=== PATIENT | female | born 1990 | race Caucasian/White ===

== ENCOUNTER → 2017-02-24 | Outpatient (REF) ==
[~2017-02-24] MED LIST: ABILIFY2 MG PO; CEPHALEXIN500 M1 PO; CLEOCIN HCL300 MG PO; DESYREL 100MG100 MG PO; FLONASE NASAL S16 GM NS; METRONIDAZOLE500 MG PO; MOTRIN 800800 MG/TAB PO; NO HOME MEDICATIONS; NORCO 325 MG-51 TAB PO; PERCOCET 325 MG1 TA2 PO; PRENATAL; ZOFRAN ODT4 MG PO; ZOLOFT 100MG100 MG PO
== END ==
LOC: ZLAB.WCH 19:47
DX: Z01.89 Encounter for other specified special examinations (principal)

== ENCOUNTER 2017-11-09 06:42 | Outpatient (CLI) | payer MEDICAID ==
[~2017-11-09] VITALS: Ht 157.5 cm; Wt 100.9 kg
[2017-11-09 07:04] VITALS: BP 128/92; PULSE 83; TEMP 98.3
[2017-11-09] MEDS ORDERED: TYLENOL PM EXTR1 TA1 PO (07:12)
[2017-11-09] MEDS ORDERED: PRENATAL MVI PO (07:12)
[2017-11-09 07:30] VITALS: BP 114/78; PULSE 70
== END 2017-11-09 08:00 | disposition home or self-care (01) ==
LOC: LDRO 06:42
DX: O36.8130 Decreased fetal movements, third trimester, not applicable or unspecified (principal); Z3A.29 29 weeks gestation of pregnancy

== ENCOUNTER → 2017-12-24 | Emergency (ER) | payer MEDICAID ==
[~2017-12-24] VITALS: Ht 157.5 cm; Wt 101.4 kg
[~2017-12-24] MED LIST changes: +PRENATAL MVI PO; +TYLENOL PM EXTR1 TA1 PO
[2017-12-24 13:08] VITALS: BP 120/76; PULSE 121; TEMP 98.1
== END ==
LOC: COL.ER 13:07
DX: O9A.213 Injury, poisoning and certain other consequences of external causes complicating pregnancy, third trimester (principal); S93.402A Sprain of unspecified ligament of left ankle, initial encounter; S80.211A Abrasion, right knee, initial encounter; Z3A.35 35 weeks gestation of pregnancy; W19.XXXA Unspecified fall, initial encounter; Y92.511 Restaurant or cafe as the place of occurrence of the external cause

== ENCOUNTER 2018-01-12 21:27 | Outpatient (CLI) | payer MEDICAID ==
[~2018-01-12] VITALS: Ht 157.5 cm; Wt 100.9 kg
[2018-01-12 21:49] VITALS: BP 126/93; PULSE 71; TEMP 97.9
[2018-01-12 22:00] VITALS: BP 121/79; PULSE 68
[2018-01-12 22:30] VITALS: BP 120/77; PULSE 66
[2018-01-12 23:01] VITALS: BP 122/68; PULSE 65
== END 2018-01-12 23:17 | disposition home or self-care (01) ==
LOC: LDRO 21:27 → LDR 22:41 → LDRO 23:17 → LDR 23:17
DX: O36.8130 Decreased fetal movements, third trimester, not applicable or unspecified (principal); Z3A.38 38 weeks gestation of pregnancy

== ENCOUNTER 2018-01-19 05:37 | Inpatient (IN) | payer MEDICAID ==
[2018-01-19] VITALS (21 sets, daily range): BP systolic 107–143; BP diastolic 61–97; PULSE 64–82; TEMP 97.9–98.1
[~2018-01-19] VITALS: Ht 157.5 cm; Wt 100.9 kg
[2018-01-19 06:34] LABS: BASO % 0.2 % (0.0-2.0); EOS # 0.1 (0.0-0.7); EOS % 1.1 % (0-4.0); GRAN # 7.6 (1.4-6.5); GRAN % 65.6 % (42.2-75.2); HEMOGLOBIN 11.2 g/dl (12.5-16.0); LYMPH # 2.9 (1.2-3.4); LYMPH % 25.2 % (20.0-51.0); MEAN CELL VOLUME 80 fl (80.0-100.0); MEAN CORPUSCULAR HEMOGLOBIN 27 pg (27.0-31.0); MEAN CORPUSCULAR HGB CONC 33 g/dl (33.0-37.0); MEAN PLATELET VOLUME 11.5 fl (7.4-10.4); MONO # 0.8 (0.1-0.6); MONO % 7.1 % (1.7-9.3); PLATELET COUNT 212 K/mm3 (130-400); RED BLOOD COUNT 4.18 M/mm3 (4.10-5.30); REDCELL DISTRIBUTION WIDTH-CV 13.2 % (11.5-14.5)
[2018-01-19 06:38] LABS: HEMATOCRIT 33.5 % (37.0-47.0)
[2018-01-20] VITALS: BP 130/70; PULSE 66
[2018-01-20 06:41] VITALS: BP 123/81; PULSE 77; TEMP 97.8
[2018-01-20] MEDS ORDERED: MOTRIN 800800 MG/TAB PO (08:35)
[2018-01-20] MEDS ORDERED: PERCOCET 325 MG1 TA2 PO (08:35)
[2018-01-20 15:58] VITALS: BP 120/78; PULSE 78; TEMP 98.1
[2018-01-20 18:20] VITALS: BP 137/85; PULSE 79; TEMP 98.3
[2018-01-21 07:00] VITALS: BP 127/84; PULSE 75; TEMP 97.7
== END 2018-01-21 10:00 | disposition home or self-care (01) | DRG 766 ==
LOC: OB 05:37 → LDR 08:08 → OB 01-21 10:00
PROVIDERS: Obstetrics & Gynecology
PROC: 10D00Z1 Extraction of Products of Conception, Low, Open Approach (ICD-10-PCS; principal; 2018-01-19)
DX: O34.211 Maternal care for low transverse scar from previous cesarean delivery (principal); Z37.0 Single live birth; Z3A.39 39 weeks gestation of pregnancy
CPT/HCPCS: J0171; J0690; J1885; J2270; J2370; J2405; J2590; J7120

== ENCOUNTER 2018-02-16 22:27 | Emergency (ER) | payer MEDICAID ==
[~2018-02-16] VITALS: Ht 157.5 cm; Wt 90.9 kg
[2018-02-16 22:31] VITALS: TEMP 97.8
[2018-02-16 23:11] LABS: COLLECTION METHOD CLEAN CATCH
[2018-02-16 23:13] LABS: BASO % 0.3 % (0.0-2.0); EOS # 0.9 (0.0-0.7); EOS % 6.8 % (0-4.0); GRAN # 6.9 (1.4-6.5); GRAN % 52.9 % (42.2-75.2); HEMATOCRIT 38.9 % (37.0-47.0); HEMOGLOBIN 12.7 g/dl (12.5-16.0); LYMPH # 4.5 (1.2-3.4); LYMPH % 34.2 % (20.0-51.0); MEAN CELL VOLUME 80 fl (80.0-100.0); MEAN CORPUSCULAR HEMOGLOBIN 26 pg (27.0-31.0); MEAN CORPUSCULAR HGB CONC 33 g/dl (33.0-37.0); MEAN PLATELET VOLUME 10.9 fl (7.4-10.4); MONO # 0.7 (0.1-0.6); MONO % 5.6 % (1.7-9.3); PLATELET COUNT 301 K/mm3 (130-400); RED BLOOD COUNT 4.87 M/mm3 (4.10-5.30); REDCELL DISTRIBUTION WIDTH-CV 12.7 % (11.5-14.5)
[2018-02-16 23:17] LABS: MUCOUS Present /lpf; PH 5 (5-8); URINE APPEARANCE Hazy; URINE BACTERIA None Seen /hpf; URINE BILIRUBIN Negative (NEGATIVE); URINE BLOOD 3+ (NEGATIVE); URINE COLOR Yellow; URINE GLUCOSE Negative (NEGATIVE); URINE KETONE Negative (NEGATIVE); URINE LEUKOCYTE ESTERASE 2+ (NEGATIVE); URINE NITRATE Negative (NEGATIVE); URINE PROTEIN(semi-quant) 1+ (NEGATIVE); URINE RBC 20-50 /hpf; URINE UROBILINOGEN Negative (NEGATIVE)
[2018-02-16 23:24] LABS: BILIRUBIN,TOTAL 0.3 mg/dL (0.0-1.0); C-REACTIVE PROTEIN 0.6 mg/dL (0.0-0.9); CREATININE, serum 0.82 mg/dL (0.52-1.25); POTASSIUM 3.7 mmol/L (3.4-5.0); TOTAL PROTEIN 7.2 gm/dL (6.4-8.2)
[2018-02-17 01:23] VITALS: BP 128/88; PULSE 74
[2018-02-17] MEDS ORDERED: ZOFRAN 4MG T4 MG/TAB PO (01:23)
[2018-02-17] MEDS ORDERED: CIPRO 500MG TA500 MG PO (01:23)
== END 2018-02-17 01:36 | disposition home or self-care (01) ==
LOC: COL.ER 22:27
PROVIDERS: Emergency Medicine
DX: O90.89 Other complications of the puerperium, not elsewhere classified (principal); R10.13 Epigastric pain; R19.7 Diarrhea, unspecified; Z98.890 Other specified postprocedural states
CPT/HCPCS: J2405; J7030

== ENCOUNTER 2018-08-04 10:54 | Emergency (ER) | payer OTHER ==
[~2018-08-04] VITALS: Ht 157.5 cm; Wt 95.5 kg
[~2018-08-04 10:54] MED LIST changes: +CIPRO 500MG TA500 MG PO; +ZOFRAN 4MG T4 MG/TAB PO
[2018-08-04 10:58] VITALS: BP 152/88; TEMP 98.4
[2018-08-04 11:56] LABS: BASO % 0.4 % (0.0-2.0); EOS # 0.2 (0.0-0.7); EOS % 2.2 % (0-4.0); GRAN # 5.1 (1.4-6.5); GRAN % 61.1 % (42.2-75.2); HEMATOCRIT 39.4 % (37.0-47.0); HEMOGLOBIN 12.8 g/dl (12.5-16.0); LYMPH # 2.6 (1.2-3.4); LYMPH % 31.4 % (20.0-51.0); MEAN CELL VOLUME 82 fl (80.0-100.0); MEAN CORPUSCULAR HEMOGLOBIN 27 pg (27.0-31.0); MEAN CORPUSCULAR HGB CONC 33 g/dl (33.0-37.0); MEAN PLATELET VOLUME 10.4 fl (7.4-10.4); MONO # 0.4 (0.1-0.6); MONO % 4.5 % (1.7-9.3); PLATELET COUNT 287 K/mm3 (130-400); RED BLOOD COUNT 4.81 M/mm3 (4.10-5.30); REDCELL DISTRIBUTION WIDTH-CV 12.6 % (11.5-14.5)
[2018-08-04 11:59] LABS: PROTHROMBIN TIME 11.9 SECONDS (9.7-12.8)
[2018-08-04 12:02] LABS: PARTIAL THROMBOPLASTIN TIME 34.7 SECONDS (26.0-37.0)
[2018-08-04 12:05] LABS: ALANINE AMINOTRANSFERASE 15 U/L (9-52); ALBUMIN 3.9 gm/dL (3.5-5.0); ALKALINE PHOSPHATASE 72 U/L (50-136); ANION GAP 9 mmol/L (7-16); AST,SGOT 12 U/L (15-37); BILIRUBIN,TOTAL 0.2 mg/dL (0.0-1.0); BLOOD UREA NITROGEN 10 mg/dL (7-17); CALCIUM 9.3 mg/dL (8.4-10.2); CARBON DIOXIDE 27 mmol/L (22-30); CHLORIDE 104 mmol/L (98-107); CREATININE, serum 0.74 mg/dL (0.52-1.25); GLUCOSE 123 mg/dL (74-106); POTASSIUM 3.4 mmol/L (3.4-5.0); SODIUM 140 mmol/L (137-145); TOTAL PROTEIN 7.1 gm/dL (6.4-8.2)
[2018-08-04 12:24] LABS: TROPONIN-I < 0.012 ng/mL (0.000-0.034)
[2018-08-04] MEDS ORDERED: VOLTAREN 75 DR75 MG PO (13:44)
[2018-08-04 14:50] VITALS: PULSE 70
== END 2018-08-04 14:50 | disposition home or self-care (01) ==
LOC: COL.ER 10:54
PROVIDERS: Family Medicine
DX: R07.89 Other chest pain (principal); Z98.890 Other specified postprocedural states

== ENCOUNTER 2019-03-29 10:18 | Emergency (ER) | payer MEDICAID ==
[~2019-03-29] VITALS: Ht 157.5 cm; Wt 90.9 kg
[~2019-03-29 10:18] MED LIST changes: +VOLTAREN 75 DR75 MG PO
[2019-03-29 10:25] VITALS: TEMP 98.7
[2019-03-29 13:37] VITALS: BP 120/85; PULSE 70
== END 2019-03-29 13:39 | disposition home or self-care (01) ==
LOC: COL.ER 10:18
DX: R07.89 Other chest pain (principal)

== ENCOUNTER 2021-02-15 09:20 | Emergency (ER) | payer MEDICAID ==
[~2021-02-15] VITALS: Ht 157.5 cm; Wt 100.0 kg
[2021-02-15 09:51] VITALS: TEMP 98.1
[2021-02-15] MEDS ORDERED: FLEXERIL 1010 MG/TAB PO (12:48)
[2021-02-15 13:05] VITALS: BP 140/95; PULSE 86
== END 2021-02-15 13:07 | disposition home or self-care (01) ==
LOC: COL.ER 09:20
DX: M54.2 Cervicalgia (principal)

== ENCOUNTER 2021-09-28 18:22 | Emergency (ER) | payer MEDICAID ==
[~2021-09-28] VITALS: Ht 157.5 cm; Wt 104.5 kg
[~2021-09-28 18:22] MED LIST changes: +FLEXERIL 1010 MG/TAB PO
[2021-09-28 18:27] VITALS: TEMP 98.5
[2021-09-28 20:30] VITALS: BP 137/97; PULSE 54
== END 2021-09-28 20:30 | disposition home or self-care (01) ==
LOC: COL.ER 18:22
DX: M72.2 Plantar fascial fibromatosis (principal)

== ENCOUNTER 2022-09-24 14:28 | Outpatient (CLI) | payer MEDICAID ==
[2022-09-24] VITALS (19 sets, daily range): BP systolic 130–185; BP diastolic 82–123; PULSE 85–103; TEMP 97.9
[~2022-09-24] VITALS: Ht 157.5 cm; Wt 110.0 kg
--- NOTE | 2022-09-24 13:39 | NUR ---
Pt arrived on unit ambulatory from clinic for elevated blood pressures. Pt reports a headache this morning with some blurry vision the last 3-4 days. Pt denies any contractions, leaking of fluid or vaginal bleeding and reports normal movement. EFM and toco monitors started. Plan of care for serial blood pressures and labs as ordered from Dr. Sanchez reviewed with pt.
[2022-09-24] MEDS ORDERED: MUCINEX 60600 MG/TA1 PO (15:03)
[2022-09-24 15:18] LABS: BASO % 0.2 % (0.0-2.0); EOS # 0.1 K/mm3 (0.0-0.7); EOS % 1.1 % (0.0-4.0); GRAN # 9.4 K/mm3 (1.4-6.5); GRAN % 71.4 % (42.2-75.2); HEMOGLOBIN 11.2 g/dl (12.5-16.0); LYMPH # 2.6 K/mm3 (1.2-3.4); LYMPH % 19.6 % (20.0-51.0); MEAN CELL VOLUME 79 fl (80.0-100.0); MEAN CORPUSCULAR HEMOGLOBIN 26 pg (27-31); MEAN CORPUSCULAR HGB CONC 33 g/dl (33.0-37.0); MONO # 0.9 K/mm3 (0.1-0.6); MONO % 6.9 % (1.7-9.3); PLATELET COUNT 246 K/mm3 (130-400); RED BLOOD COUNT 4.39 M/mm3 (4.10-5.30); REDCELL DISTRIBUTION WIDTH-CV 13.1 % (11.5-14.5)
[2022-09-24 15:21] LABS: HEMATOCRIT 34.5 % (37.0-47.0)
[2022-09-24 15:22] LABS: COLLECTION METHOD CLEAN CATCH
[2022-09-24 15:24] LABS: ALBUMIN 2.6 gm/dL (3.5-5.0); BILIRUBIN,TOTAL 0.4 mg/dL (0.2-1.2); CALCIUM 9.2 mg/dL (8.4-10.2); CREATININE, serum 0.67 mg/dL (0.57-1.11); TOTAL PROTEIN 6.8 gm/dL (6.2-8.1)
[2022-09-24 15:30] LABS: URINE APPEARANCE Cloudy (CLEAR/HAZY); URINE COLOR Amber (YELLOW)
[2022-09-24 15:36] LABS: PH 5.5 (5.0-8.5)
[2022-09-24 15:37] LABS: URINE BLOOD TRACE-LYSED (NEGATIVE); URINE GLUCOSE Negative (NEGATIVE); URINE KETONE Negative (NEGATIVE); URINE NITRATE Negative (NEGATIVE); URINE PROTEIN(semi-quant) 1+ (NEGATIVE)
[2022-09-24 15:39] LABS: MUCOUS Present (NOT PRESENT); SQUAMOUS EPITHELIAL 20-50 /hpf (0-10); URINE BACTERIA Many /hpf (NONE SEEN)
--- NOTE | 2022-09-24 17:25 | NUR ---
Dr. Sanchez at the bedside. FHR tracing and maternal vital signs reviewed. Plan of care for possible repeat tonight discussed. Pt requested some time to think about it and talk to her . Dr. Sanchez to follow up with pt shortly to finalize plan.
--- NOTE | 2022-09-24 18:20 | NUR ---
This nurse received report from Veronica Mcgraw RN. Pt came in for WYNNE and blurred vision as well as high BP. Labs were drawn and UA collected. Pt is GDM, diet controlled. Dr. Sanchez discussed with pt possibility of . This nurse assumes care of pt.
--- NOTE | 2022-09-24 18:45 | NUR ---
1809: This nurse receives a phonecall from Dr. Sanchez asking for an update on the pt and pt decision. Dr. Sanchez states that "I was wondering if she had talked to her already about the potential of a c-secton today." This nurse informed Dr. Sanchez that after report on pt is given that this nurse will call back with an answer. 1814: This nurse at pt bedside for introductions. FHR tracing intermittently due to movement and maternal habitus. This nurse at pt bedside palpating abd, with pt consent and explanation, attemtping to readjust FHR monitor. Audible FHR and movement heard throughout the room. POC discussed with pt. This nurse clarified with pt on decisions for POC of potential for csection today. Pt stated "I am waiting for my , he is coming up. I have plans with my twin sister tomorrow to go to [place] for a horse show. I didn't buy tickets yet but I really want to go with her. If we can push the to tomorrow, that would be great, if it has to happen." This nurse educates on procedures and protocol. Questions, concerns, and needs encouraged. Pt verbalized understanding and agreement of POC with "no" questions, concerns, or needs. [id number]: Pt off external monitors x2, OOB ambulating to utilize bathroom. 1831: Pt back on external monitors x2.
--- NOTE | 2022-09-24 19:05 | NUR ---
1835: This nurse notified Dr. Sanchez, via phonecall, about pt decision and progress. See physician notification for further details. 1904: This nurse attempted to notify Dr. Sanchez, via phonecall, automated voicemail reached. Voicemail left for Dr. Sanchez to return call on this nurse work phone. Pt off external monitors x2 and changed into civilian clothes. Pt educated on POC and DC discussion. Pt verbalized understanding and agreement of POC.
--- NOTE | 2022-09-24 19:49 | NUR ---
Pt educated on signs and symptoms to look out for; WYNNE, blurry vision that does not resolve with medication, swelling of the face, and/or right upper belly pain. Pt also educated on returning to unit if leaking/gushing of fluids, persistent and consistent ctx, and/or vaginal bleeding occurs. Pt instructed to call on to reschedule procedure with Dr. Helm. Pt also educated on returning to unit sometime this weekend for a BP check and NST monitoring. Pt also educated on keeping hydrated. Questions, concerns, and needs encouraged. Pt stated "Do I have to come in tomorrow? Does it have to be tomorrow? Cause I had those plans. It is anytime this weekend right? I will come in on Tuesday, try to in the morning." This nurse reiterated to pt that this conversation and potential for situation may repeat itself when pt comes in for the BP check and NST monitoring, be prepared and have the right mind set in knowing that. Pt stated "Ok, I get it. But the baby looks fine now right? If I need to have the on Tuesday, I am ok with it." This nurse reiterates to pt and pt spouse that pt BP are, per Dr. Sanchez, "dangerously elevated". It is a risk that pt is assuming not having a today, per Dr. Sanchez, "against medical advice of a ". Pt verbalized understanding and agreement of POC with "no" additional questions, concerns, or needs.Discharge summary signed, witnessed, obtained. Pt given education packet for Early Labor and Discomforts of as well as health summary. Pt ambulated off unit, accompanied by spouse, with DC paperwork and health summary in hand at 1949.
== END 2022-09-24 19:49 ==
LOC: LDRO 14:28
PROVIDERS: Obstetrics & Gynecology
DX: O16.3 Unspecified maternal hypertension, third trimester (principal); Z3A.37 37 weeks gestation of pregnancy

== ENCOUNTER 2022-09-26 10:52 | Outpatient (CLI) | payer MEDICAID ==
[~2022-09-26] VITALS: Ht 157.5 cm; Wt 109.8 kg
[~2022-09-26 10:52] MED LIST changes: +MUCINEX 60600 MG/TA1 PO
--- NOTE | 2022-09-26 10:55 | NUR ---
Pt arrived on unit ambulatory for NST and blood pressure check. Pt denies any contractions, leaking of fluid or vaginal bleeding and reports normal movement. EFM and toco monitors started. Serial blood pressure checks started.
== END 2022-09-26 11:45 | disposition home or self-care (01) ==
LOC: LDRO 10:52 → LDR 11:19 → LDRO 11:45
DX: Z34.93 Encounter for supervision of normal pregnancy, unspecified, third trimester (principal); Z3A.37 37 weeks gestation of pregnancy
CPT/HCPCS: OP

== ENCOUNTER 2022-10-08 05:13 | Inpatient (IN) | payer MEDICAID ==
[~2022-10-08] VITALS: Ht 157.5 cm; Wt 108.2 kg
[2022-10-08] VITALS (15 sets, daily range): BP systolic 65–159; BP diastolic 36–106; PULSE 60–87; TEMP 97.6–98.1
--- NOTE | 2022-10-08 06:25 | NUR ---
THIS NURSE ASSUMES CARE OF PT AT THIS TIME. NURSE TO NURSE REPORT FROM TIP BARAJAS. PT DENIES FEELING CONTRACTIONS, DENIES LEAKING OF FLUID AND REPORTS POSITIVE MOVEMENT. CATEGORY 1 TRACING ON EFM. WILL RESUME WITH CSECTION PLAN OF CARE.
[2022-10-08 06:41] LABS: BASO % 0.3 % (0.0-2.0); EOS # 0.2 K/mm3 (0.0-0.7); EOS % 1.4 % (0.0-4.0); GRAN # 9.7 K/mm3 (1.4-6.5); GRAN % 68.8 % (42.2-75.2); HEMOGLOBIN 11.2 g/dl (12.5-16.0); LYMPH # 3.1 K/mm3 (1.2-3.4); LYMPH % 21.8 % (20.0-51.0); MEAN CELL VOLUME 77 fl (80.0-100.0); MEAN CORPUSCULAR HEMOGLOBIN 25 pg (27-31); MEAN CORPUSCULAR HGB CONC 33 g/dl (33.0-37.0); MEAN PLATELET VOLUME 12.2 fl (7.4-10.4); MONO # 0.9 K/mm3 (0.1-0.6); MONO % 6.4 % (1.7-9.3); PLATELET COUNT 265 K/mm3 (130-400); RED BLOOD COUNT 4.44 M/mm3 (4.10-5.30); REDCELL DISTRIBUTION WIDTH-CV 13.2 % (11.5-14.5)
[2022-10-08 06:44] LABS: HEMATOCRIT 34.2 % (37.0-47.0)
--- NOTE | 2022-10-08 08:40 | NUR ---
PT HYPOTENSIVE IN PACU FOLLOWING SURGERY. 65/36. ALERT AND TALKING. LAID SUPINE, LR BOLUS INFUSING. BP RECOVERS TO 100/85. LOCHIA REMAINS SCANT, FUNDUS FIRM AT UMBILICUS. QBL DURING SURGERY AND PP SO FAR = 285CC. WILL CONTINUE WITH PLAN OF CARE.
--- NOTE | 2022-10-08 16:41 | NUR ---
1600 ANDREWS REMOVED, PT AMBULATED TO BATHROOM WITH STANDBY ASSIST FROM THIS RN AND . KARTHIK APPLIED, COREY CARE PROVIDED. NO VOID AT THIS TIME.
--- NOTE | 2022-10-08 17:38 | NUR ---
1600 BP 159/106. PT CHILDREN AND OTHER FAMILY IN ROOM, THIS RN ASKED FAMILY TO LEAVE TO DECREASE STIM. WILL FOLLOW UP. 1730 FAMILY LEFT ROOM. BP RECHECKED- 157/92. WILL NOTIFY ON-CALL.
[2022-10-09 01:45] VITALS: BP 154/93; PULSE 88; TEMP 97.8
[2022-10-09 05:40] VITALS: BP 134/84; PULSE 82; TEMP 97.9
[2022-10-09 07:12] VITALS: BP 128/88; PULSE 95; TEMP 98
[2022-10-09] MEDS ORDERED: MOTRIN 800800 MG/TAB PO (08:56)
[2022-10-09] MEDS ORDERED: PROCARDIA XL 6060 MG PO (08:56)
[2022-10-09] MEDS ORDERED: PERCOCET 325 MG1 TA2 PO (08:56)
[2022-10-09 11:12] VITALS: BP 126/89; PULSE 92; TEMP 98
--- NOTE | 2022-10-09 15:43 | NUR ---
PATIENT SHOWERED AND THIS NURESE ASSESSED INCISION. NO DRAINAGE OR REDNESS NOTED TO THE INCISION SITE.
[2022-10-09 16:15] VITALS: BP 120/85; PULSE 90; TEMP 97.9
--- NOTE | 2022-10-09 17:59 | NUR ---
PATIENT INFORMED NURSE OF EDEMA TO FEET. THIS NURSE ENCOURAGED RESTING WITH FEET ELEVATED AND WILL CONTINUE TO MONITOR.
[2022-10-09 20:30] VITALS: BP 125/82; PULSE 91; TEMP 97.9
[2022-10-10 07:20] VITALS: BP 138/95; PULSE 90; TEMP 98.1
--- NOTE | 2022-10-10 12:31 | NUR ---
DISCHARGE TEACHING COMPLETED. EDUCATED ON FOLLOWUP APPOINTMENTS AND PRESCRIPTIONS. QUESTIONS INVITED AND ANSWERED.
== END 2022-10-10 12:50 | disposition home or self-care (01) | DRG 788 ==
LOC: OB 05:13
PROVIDERS: ADMIT Obstetrics & Gynecology
PROC: 10D00Z1 Extraction of Products of Conception, Low, Open Approach (ICD-10-PCS; principal; 2022-10-08)
DX: O34.211 Maternal care for low transverse scar from previous cesarean delivery (principal); Z37.0 Single live birth; O13.4 Gestational [pregnancy-induced] hypertension without significant proteinuria, complicating childbirth; O69.81X0 Labor and delivery complicated by cord around neck, without compression, not applicable or unspecified; Z3A.39 39 weeks gestation of pregnancy; Z88.0 Allergy status to penicillin; Z88.8 Allergy status to other drugs, medicaments and biological substances
CPT/HCPCS: J0171; J0690; J1885; J2370; J2405; J2590; J7120